=== PATIENT | male | born 1985 | race Caucasian/White ===

== ENCOUNTER 2019-05-13 13:10 | Emergency (ER) | payer OTHER, SELFPAY ==
[2019-05-13 13:42] VITALS: BP 127/88; PULSE 82; RESP 16; TEMP 36.5; O2SAT 99
--- NOTE | 2019-05-13 14:04 | ED.URI ---
HPI - URI/Sore Throat General Chief Complaint: Upper Respiratory Infection Stated Complaint: Chest pain/SOB Time Seen by Provider: 05/13/19 14:04 Source: patient and RN notes reviewed Mode of arrival: ambulatory Limitations: no limitations History of Present Illness HPI Narrative: 33 year old male presents with concern for shortness of breath. He reports symptoms started mildly one week ago with mild shortness of breath. Reports episodes of shortness of breath seemed to worsen yesterday. He denies current shortness of breath. He denies cough, rhinorrhea, nasal congestion. Reports fatigue. Denies taking any medications for his symptoms. MD elicited complaint: cough Related Data Home Medications Medication Instructions Recorded Confirmed insulin degludec [Tresiba U-100 36 unit SUBCUT HS 05/13/19 05/13/19 Insulin] insulin lispro [Humalog KwikPen See Protocol SUBCUT 05/13/19 Insulin] Allergies Allergy/AdvReac Type Severity Reaction Status Date / Time No Known Allergies Allergy Verified 05/13/19 13:20 Review of Systems Review of Systems: Narrative: CONSTITUTIONAL: Denies malaise, chills, sweats, or fever. Reports fatigue. EYES: Denies visual changes, redness, or discharge. ENT: Denies rhinorrhea, congestion, sinus pain, otalgia and sore throat. CARDIOVASCULAR: Denies chest pain, palpitations, or edema. RESPIRATORY: Reports cough, dyspnea. GASTROINTESTINAL: Denies abdominal pain, nausea, vomiting, diarrhea SKIN: Denies rash or itching. MUSCULOSKELETAL: Denies myalgia. NEUROLOGIC: Denies headache. All systems reviewed & are unremarkable except as noted in HPI and below PMFSH Family History Family History (Updated 10/26/14 @ 10:38 by DOCTOR UNKNOWN) Other Family history of Alzheimer's disease Family history of kidney disease Social History Social History Smoking status: Never smoker Alcohol intake: current Gender identity (if verbalized by the patient): Male Comments At time of signature, agree with nursing past medical, surgical, social and family history. There is no relevant family history pertinent to the presenting complaint Exam Narrative: Exam Narrative: GENERAL: Well-appearing, well-nourished, and in no acute distress. HEAD: Normocephalic EYES: PERRLA, conjunctivae clear ENT: Nares clear, turbinates pink, no discharge. Mucous membranes moist. TM pearly romero with sharp light reflex bilaterally; no tragal tenderness. Oropharynx not erythematous without lesions. Tonsils not enlarged and without exudate, no drooling, no hoarseness, no trismus, uvula midline. NECK: Supple. No lymphadenopathy CHEST: Clear to auscultation, breath sounds equal. No wheezing, rhonchi, rales, or stridor. No respiratory distress, speaks in full sentences. HEART: Regular rate and rhythm. No murmur heard. SKIN: Warm, dry, no rash. NEURO: Alert and oriented x3. PSYCH: Normal mood and affect Course Course Emergency Course: Patient is aware of diagnosis, understands and agrees to treatment plan. Anticipatory guidance given. Patient agrees to follow-up as directed and is aware of reasons to seek care at the emergency department. Portions of this record may have been created with voice recognition software Vital Signs Vital signs: Vital Signs Temperature 97.7 F 05/13/19 13:42 Pulse Rate 82 05/13/19 13:42 Respiratory Rate 16 05/13/19 13:42 Blood Pressure 127/88 05/13/19 13:42 Pulse Oximetry 99 05/13/19 13:42 Temperature 97.7 F 05/13/19 13:42 Pulse Rate 82 05/13/19 13:42 Respiratory Rate 16 05/13/19 13:42 Blood Pressure 127/88 05/13/19 13:42 Pulse Oximetry 99 05/13/19 13:42 Reviewed. Patient has been instructed to follow up with her primary care provider within the next week regarding her elevated blood pressure today. MDM - URI/Sore Throat MDM Narrative Medical decision making narrative: Differential diagnosis considered: Strep pharyngitis, allergic rhinitis, upper res
== END 2019-05-13 14:37 | disposition home or self-care (01) ==
PROVIDERS: Emergency Provider Nurse Practitioner
DX: B34.9 Viral infection, unspecified (principal); E10.9 Type 1 diabetes mellitus without complications
CPT/HCPCS: 99211; G0463

== ENCOUNTER 2019-06-06 10:27 | Emergency (ER) | payer OTHER, SELFPAY ==
[2019-06-06] VITALS (14 sets, daily range): BP systolic 119–129; BP diastolic 36–92; PULSE 93–115; RESP 13–24; TEMP 36.8; O2SAT 96–100
--- NOTE | ~2019-06-06 | XR_ITS ---
XR chest 1V portable 06/06/2019 11:16 Indication: Shortness of breath Procedure: AP portable chest Comparison: No prior studies for comparison. Findings: Heart size normal. No focal air space disease, pulmonary edema, pleural effusion or suspect ed pneumothorax. Impression: 1: No acute cardiopulmonary disease. Reviewed, dictated and finalized at location A. Impression: 1: No acute cardiopulmonary disease.
--- NOTE | 2019-06-06 10:49 | ECG_ITS ---
Measurements Intervals [place] Rate: 106 P: 69 SC: 121 QRS: -24 QRSD: 97 T: 63 QT: 318 QTc: 424 Interpretive Statements SINUS TACHYCARDIA ABNORMAL ECG Electronically Signed On 06-06-2019 11:11:44 CDT by Lisandro Rosario D.O.
[2019-06-06 11:01] LABS: Basophils Percent Auto 0.7 % (0.2-1.2); Eosinophils Percent Auto 0.7 % (0-4.4); Hematocrit 48.4 % (42.0-52.0); Hemoglobin 16.4 g/dL (14.0-18.0); Immature Granulocyte Absolute 0.01 K/mm3 (0.00-0.031); Immature Granulocyte Percent A 0.2 % (0-0.5); Lymphocytes Absolute Auto 1.08 K/mm3 (0.9-3.2); Lymphocytes Percent Auto 24.4 % (18.3-44.2); Mean Corpuscular HGB Conc 33.9 g/dl (32-36); Mean Corpuscular Hemoglobin 28.9 pg (26-34); Mean Corpuscular Volume 85.2 fl (80-100); Monocytes Absolute Auto 0.3 K/mm3 (0.1-0.6); Monocytes Percent Auto 6.1 % (2.6-8.5); Neutrophils Percent Auto 67.9 % (45.5-73.1); Platelet Count Result 271 k/mm3 (150-375); Red Blood Count 5.68 M/mm3 (4.6-6.20); Red Cell Distribution Width 12.8 % (11.5-14.5); White Blood Count 4.4 K/mm3 (4.5-10.0)
[2019-06-06 11:13] LABS: Blood Urea Nitrogen 15 mg/dL (9-20); Calcium 9.3 mg/dL (8.4-10.2); Carbon Dioxide 30 mmol/L (22-30); Chloride 103 mmol/L (98-107); Estimated CRCL calculation 121 ml/min; Estimated Glomerular Filt Rate > 60; Glucose 117 mg/dL (75-110); Potassium 3.6 mmol/L (3.4-5.0); Sodium 139 mmol/L (137-145)
--- NOTE | 2019-06-06 11:58 | ED.GENADULT ---
HPI - General Adult General Chief complaint: Shortness of Breath/Dyspnea Stated complaint: Sob Time Seen by Provider: 06/06/19 11:13 Source: patient and family Mode of arrival: ambulatory Limitations: no limitations History of Present Illness HPI narrative: Patient is a 33-year-old male who presents to emergency department for evaluation of shortness of breath that is been present now for almost 30 days. Patient has been seen at 2 urgent cares with unremarkable results. Patient notes he had had some congestion during this. And slight cough that is nonproductive. Patient notes intermittent shortness of breath denies chest pain notes he has had some loose stools but denies vomiting. Patient is a diabetic notes that his sugars are well controlled. On arrival patient in no distress resting comfortably in the room Related Data Home Medications Medication Instructions Recorded Confirmed insulin degludec [Tresiba U-100 36 unit SUBCUT HS 05/13/19 05/13/19 Insulin] insulin lispro [Humalog KwikPen See Protocol SUBCUT 05/13/19 Insulin] Allergies Allergy/AdvReac Type Severity Reaction Status Date / Time No Known Allergies Allergy Verified 05/13/19 13:20 [facility] Past Medical History Medical History (Updated 06/06/19 @ 12:27 by Randy Tavera PA-C) Diabetes mellitus Family History Family History (Updated 10/26/14 @ 10:38 by DOCTOR UNKNOWN) Other Family history of Alzheimer's disease Family history of kidney disease Social History Social History Smoking status: Never smoker Alcohol intake: current Gender identity (if verbalized by the patient): Male Exam Narrative: Exam Narrative: GENERAL: Well-appearing, well-nourished, and in no acute distress. HEAD: Normocephalic, atraumatic. EYES: PERRLA and EOMI. ENT: Nares clear, no rhinorrhea or epistaxis. Mucous membranes moist. Oropharynx without tonsillar hypertrophy exudate or other lesions. NECK: Supple. No adenopathy or masses. CHEST: Clear to auscultation. No respiratory distress. No wheezes rales or rhonchi HEART: Regular rate and rhythm. No murmur heard. Normal peripheral pulses. ABDOMEN: Soft, nontender, nondistended EXTREMITIES: Normal range of motion. No edema. SKIN: Warm, dry, no rash. NEURO: No focal deficits. Alert and oriented x3. Cranial nerves II through XII grossly intact PSYCH: Normal mood and affect. Course Vital Signs Vital signs: Vital Signs Temperature 98.2 F 06/06/19 10:37 Pulse Rate 109 H 06/06/19 10:37 Respiratory Rate 13 06/06/19 10:37 Blood Pressure 122/91 H 06/06/19 10:37 Pulse Oximetry 100 06/06/19 10:37 Temperature 98.2 F 06/06/19 10:37 Pulse Rate 105 H 06/06/19 11:45 Respiratory Rate 13 06/06/19 11:45 Blood Pressure 129/82 06/06/19 11:31 Pulse Oximetry 96 06/06/19 11:45 Medical Decision Making MDM Narrative Medical decision making narrative: Patient in the room in no distress with dyspnea of unknown etiology patient advised to follow with primary care no pneumonia seen on exam no high risk changes in the blood work or imaging negative d-dimer. Pulmonary embolus is felt unlikely patient provided with reasons to return Patient given primary care referral Vital Signs Vital Signs: Vital Signs Temperature 98.2 F 06/06/19 10:37 Pulse Rate 109 H 06/06/19 10:37 Respiratory Rate 06/06/19 10:37 Blood Pressure 122/91 H 06/06/19 10:37 Pulse Oximetry 100 06/06/19 10:37 Temperature 98.2 F 06/06/19 10:37 Pulse Rate 105 H 06/06/19 11:45 Respiratory Rate 06/06/19 11:45 Blood Pressure 129/82 06/06/19 11:31 Pulse Oximetry 96 06/06/19 11:45 Lab Data Result diagrams: 06/06/19 10:51 06/06/19 10:51 Labs: Lab Results 06/06/19 06/06/19 Range/Units 10:51 10:51 WBC 4.4 L (4.5-10.0) K/mm3 RBC 5.68 (4.6-6.20) M/mm3 Hgb 16.4 (14.0-18.0) g/dL
[2019-06-06 12:22] LABS: D Dimer 0.27 ug/mL (<0.48)
== END 2019-06-06 12:54 | disposition home or self-care (01) ==
PROVIDERS: Emergency Medicine Emergency Medical Services; Emergency Provider Emergency Medicine
DX: R06.00 Dyspnea, unspecified (principal); E11.9 Type 2 diabetes mellitus without complications; Z79.4 Long term (current) use of insulin; R00.0 Tachycardia, unspecified
CPT/HCPCS: 36415; 71045; 80048; 85025; 85380; 93005; 99284

== ENCOUNTER 2019-06-24 08:43 | Outpatient (CLI) | payer OTHER, SELFPAY ==
--- NOTE | 2019-06-24 | EST_ITS ---
Patient Info Name: Shai Bonilla Age: 33 years : 1985 Gender: Male Ht: 74 in Wt: 187 lbs BSA: 2.11 m2 Exam Date: 06/24/2019 10:22 AM Exam Location: [facility] Stress Patient Status: Outpatient Admit Date: 06/24/2019 Staff Ordering Physician: Skip Vanessa MD Attending Provider: Skip Vanessa MD Exercise Technologist: Shanon Snow RDCS Exercise Physician: Lisandro Rosario DO Exam Type: CA stress test treadmill Study Info Indications R06.00 - Dyspnea, unspecified A treadmill exercise stress test was performed. Summary 1. 1. Negative Anup exercise stress test for ischemic ST changes by ECG criteria. 2. 2. Mildly reduced functional capacity, achieving 12 METs of workload. 3. 3. Appropriate HR response to exercise. 4. 4. Appropriate HR recovery at 1 minute post exercise. 5. 5. No imaging with stress testing. 6. 6. Patient informed of the above results. Protocol: Anup Stress ECG Details Stage: REST Duration (min): 6 min : 49 sec Speed (mph): 0.0 Grade (%): 0 HR (bpm): 80 SBP (mmHg): 119 DBP (mmHg): 71 METS: --- Stage: REST Duration (min): 10 min : 8 sec Speed (mph): 0.0 Grade (%): 0 HR (bpm): 109 SBP (mmHg): 119 DBP (mmHg): 71 METS: --- Stage: STAGE 1 Duration (min): 1 min : 0 sec Speed (mph): 1.7 Grade (%): 10 HR (bpm): 117 SBP (mmHg): 119 DBP (mmHg): 71 METS: --- Stage: STAGE 1 Duration (min): 2 min : 0 sec Speed (mph): 1.7 Grade (%): 10 HR (bpm): 114 SBP (mmHg): 119 DBP (mmHg): 71 METS: --- Stage: STAGE 1 Duration (min): 3 min : 0 sec Speed (mph): 1.7 Grade (%): 10 HR (bpm): 121 SBP (mmHg): 151 DBP (mmHg): 69 METS: --- Stage: STAGE 2 Duration (min): 1 min : 0 sec Speed (mph): 2.5 Grade (%): 12 HR (bpm): 133 SBP (mmHg): 151 DBP (mmHg): 69 METS: --- Stage: STAGE 2 Duration (min): 2 min : 0 sec Speed (mph): 2.5 Grade (%): 12 HR (bpm): 145 SBP (mmHg): 159 DBP (mmHg): 70 METS: --- Stage: STAGE 2 Duration (min): 3 min : 0 sec Speed (mph): 2.5 Grade (%): 12 HR (bpm): 148 SBP (mmHg): 159 DBP (mmHg): 70 METS: --- Stage: STAGE 3 Duration (min): 1 min : 0 sec Speed (mph): 3.4 Grade (%): 14 HR (bpm): 165 SBP (mmHg): 175 DBP (mmHg): 70 METS: --- Stage: STAGE 3 Duration (min): 2 min : 0 sec Speed (mph): 3.4 Grade (%): 14 HR (bpm): 169 SBP (mmHg): 175 DBP (mmHg): 70 METS: --- Stage: STAGE 3 Duration (min): 3 min : 0 sec Speed (mph): 3.4 Grade (%): 14 HR (bpm): 173 SBP (mmHg): 172 DBP (mmHg): 78 METS: --- Stage: STAGE 4 Duration (min): 1 min : 0 sec Speed (mph): 4.2 Grade (%): 16 HR (bpm): 180 SBP (mmHg): 172 DBP (mmHg): 78 METS: --- Stage: STAGE 4 Duration (min): 1 min : 0 sec
--- NOTE | 2019-06-28 13:17 | WPDPFTINT ---
PFT Interpretation PFT Interpretation: DOS: 06/24/2019 REQUESTING: Dr Vanessa REASON FOR TESTING: Dyspnea PULMONARY FUNCTION TESTS Results are reliable and reproducible. Spirometry: FEV1 86%, 3.92 L. Normal. FVC 79%, mildly decreased. FEV1% is 84%, normal. No change with bronchodilator. Lung volumes: TLC 66%, moderately decreased. No air trapping. Airway resistance increased at 187%. Diffusion: DLCO normal 83%. Flow volume loop: Neither restrictive nor obstructive pattern, nonspecific shape IMPRESSION: Moderate restrictive defect with normal diffusion and spirometry. mild increased in airway resistance. Among patients with a restrictive defect, normal DLCO suggests an extrapulmonary cause of restriction such as neuromuscular weakness, kyphoscoliosis, pleural effusion or pleural thickening. Consider obtaining maximal inspiratory and expiratory pressures to evaluate respiratory muscle strength. Jaye Spain MD
== END 2019-06-24 08:44 | disposition home or self-care (01) ==
PROVIDERS: PCP Family Medicine; Visit Provider Family Medicine
DX: R06.00 Dyspnea, unspecified (principal)
CPT/HCPCS: 93017; 94060; 94726; 94729

== ENCOUNTER 2020-12-11 14:07 | Outpatient (CLI) | payer OTHER, SELFPAY ==
--- NOTE | 2020-12-12 07:22 | WPDPFTINT ---
PFT Procedure Performed PFT Procedure Performed Spirometry with Pre/Post Bronchodilator Plethysmography (Lung Vol) Diffusing Cap (DLCO) Flow Vol Loop PFT Interpretation This is a pulmonary function test with pre and post-bronchodilator spirometry, plethysmography and diffusing capacity. The test was performed and results interpreted in accordance with the 2019 and 2005 ATS/ERS Task Force guidelines respectively using the Global Lung Function Initiative-2012 reference equations. Patient demonstrated good effort and cooperation. Reproducibility criteria were met. The quality of the pre bronchodilator spirometry maneuver was Grade A and post bronchodilator spirometry maneuver was Grade A. Findings: Spirometry: Contour the inspiratory and expiratory flow tracing are normal. The pre bronchodilator FVC is 4.52 L, 73% predicted. The pre bronchodilator FEV1 is 3.95 L, 79% predicted. the FEV1: FVC ratio was 87%. The post bronchodilator FEV1 is 4.42 L, representing a 2% decrease. The post bronchodilator FEV1 is 3.92 L, representing 1% decrease. Plethysmography: The total lung capacity is 6.05 L, 78% predicted. Functional residual capacity is 3.01 L, 78% predicted. The residual volume is 1.32 L, 69% predicted. Diffusing capacity: The absolute diffusion capacity is 28.3, 78% predicted. The diffusing capacity corrected for alveolar volume is 5.53, 101 14% predicted. In comparison to previous pulmonary function test on 06/24/2019 the post bronchodilator FVC is unchanged from 4.53 L to 4.42 L. The post bronchodilator FEV1 is unchanged from 3.94 L to 3.92 L. the total lung capacity is increased from 5.35 L to 6.05 L. The functional residual capacity is increased from 2.32 L to 3.01 L. The residual volume is increased from 0.69 L to 1.32 L. The absolute diffusing capacity is unchanged from 20.6 to 28.3. The diffusing capacity corrected for alveolar volume is unchanged from 5.06 to 5.53. Impression: There is a mild restrictive ventilatory abnormality. The spirometry is normal without evidence of an obstructive abnormality. There is no significant improvement after inhaling a single dose of albuterol. The diffusing capacity is normal. When compared to the prior pulmonary function test there has been a greater than anticipated time dependent increase in the total lung capacity, functional residual capacity and the residual volume with no significant change in the FVC, FEV1, absolute diffusing capacity or diffusing capacity corrected for alveolar volume. Clinical correlation is recommended.
== END 2020-12-11 14:08 | disposition home or self-care (01) ==
PROVIDERS: PCP Family Medicine; Visit Provider Internal Medicine Pulmonary Disease
DX: R06.00 Dyspnea, unspecified (principal)
CPT/HCPCS: 94060; 94726; 94729

== ENCOUNTER 2020-12-23 09:27 | Emergency (ER) | payer OTHER, SELFPAY ==
--- NOTE | ~2020-12-23 | XR_ITS ---
EXAMINATION: XR chest 2V EXAM DATE: 12/23/2020 09:57 INDICATION: palpitations. H/O diabetes. TECHNIQUE: Frontal and lateral projections of the chest obtained and reviewed. Comparison is made to prior examination from 06/06/2019. FINDINGS: The lungs are clear. There are no pleural effusions. The cardiomediastinal silhouette is within normal limits. There is no pneumothorax suspected. The bones and soft tissues are unremarkab le. IMPRESSION: No acute cardiopulmonary findings. Reviewed, dictated and finalized at location A.
--- NOTE | 2020-12-23 09:43 | ECG_ITS ---
Measurements Intervals [place] Rate: 78 P: 60 [place]: 128 QRS: -14 QRSD: 107 T: 59 QT: 361 QTc: 412 Interpretive Statements SINUS RHYTHM WITH SINUS ARRHYTHMIA BASELINE ARTIFACT- II, III, AVL, AVF NORMAL ECG Electronically Signed On 12-23-2020 14:59:45 CDT by Lisandro Rosario D.O.
[2020-12-23 09:46] VITALS: BP 146/89; PULSE 90; RESP 26; TEMP 36.8; O2SAT 100
[2020-12-23 10:14] LABS: Basophils Percent Auto 0.4 % (0.2-1.2); Eosinophils Percent Auto 0.9 % (0-4.4); Hemoglobin 14.7 g/dL (14.0-18.0); Immature Granulocyte Absolute 0.01 K/mm3 (0.00-0.031); Immature Granulocyte Percent A 0.2 % (0-0.5); Lymphocytes Absolute Auto 1.54 K/mm3 (0.9-3.2); Mean Corpuscular HGB Conc 34.2 g/dl (32-36); Mean Corpuscular Hemoglobin 29.6 pg (26-34); Mean Corpuscular Volume 86.7 fl (80-100); Mean Platelet Volume 9.2 fl (7.4-10.4); Monocytes Absolute Auto 0.4 K/mm3 (0.1-0.6); Monocytes Percent Auto 7.5 % (2.6-8.5); Neutrophils Absolute Auto 2.7 K/mm3 (1.3-6.7); Platelet Count Result 240 k/mm3 (150-375); Red Blood Count 4.96 M/mm3 (4.6-6.20); Red Cell Distribution Width 12.3 % (11.5-14.5); White Blood Count 4.7 K/mm3 (4.5-10.0)
[2020-12-23 10:16] LABS: Add Urine Microscopic? NO; Appearance Urine Clear (Clear); Bilirubin Urine Negative (Negative); Blood Urine Negative (Negative); Color Urine Yellow (Yellow); Glucose Urine UA Negative (Negative); Ketones Urine Negative (Negative); Leukocyte Esterase Ur Negative LEU/UL (Negative); Nitrate Urine Negative (Negative); Protein Urine Negative (Negative); Specific Grav Ur 1.016 (1.001-1.035); Urobilinogen Urine Negative mg/dL (<2.0)
[2020-12-23 10:27] LABS: Alanine Aminotransferase 33 U/L (4-50); Albumin Level 4.3 g/dL (3.5-5.1); Alkaline Phosphatase 63 U/L (38-126); Anion Gap 9 mmol/L (8-16); Aspartate Amino Transferase 28 U/L (17-59); Bilirubin,Total 0.4 mg/dL (0.2-1.3); Blood Urea Nitrogen 13 mg/dL (9-20); Calcium 9.4 mg/dL (8.4-10.2); Carbon Dioxide 26 mmol/L (22-30); Chloride 106 mmol/L (98-107); Estimated CRCL calculation 119 ml/min; Estimated Glomerular Filt Rate > 60; Glucose 153 mg/dL (65-110); Potassium 3.8 mmol/L (3.4-5.0); Sodium 141 mmol/L (137-145)
[2020-12-23 10:31] VITALS: BP 131/78; PULSE 86; RESP 17; O2SAT 99
--- NOTE | 2020-12-23 10:36 | ED.ARRPALP ---
HPI - Arrhythmia/Palpitations General Chief Complaint: Arrhythmia/Palpitations Stated Complaint: irregular heart beat Time Seen by Provider: 12/23/20 09:31 Source: patient History of Present Illness HPI narrative: Patient presents with palpitations. Patient was is getting ready for latter day was going up and down the stairs and had a sensation of his heart pounding. He put on an apple watch and it said he was in A. fib with a fast heart rate he was concerned so he came to the ER for evaluation. By time he came to the ER reports his symptoms had greatly improved. His initial symptoms were associated with chest tightness shortness of breath he now feels well. Denies any focal chest pain denies any shortness of breath. Mild cough and congestion but denies any fevers, nausea, vomiting. Denies significant family history of cardiac arrhythmias or disease. Reports he is being evaluated by pulmonology for his shortness of breath. Patient denies recent hospitalizations trauma or surgeries denies prior history of PE or family hx of clotting disorders Related Data Home Medications Medication Instructions Recorded Confirmed insulin lispro [Humalog KwikPen See Protocol SUBCUT 05/13/19 12/20/20 Insulin] sildenafil 25 mg tablet 50 mg PO DAILY PRN tablet 07/25/19 12/20/20 cetirizine 10 mg capsule 10 mg PO DAILY 08/01/19 12/20/20 fluticasone propionate 50 2 spray NASAL DAILY ml 09/14/19 12/20/20 mcg/actuation nasal spray,suspension Allergies Allergy/AdvReac Type Severity Reaction Status Date / Time acetaminophen Allergy Unknown fever Verified 12/23/20 09:58 Review of Systems Review of Systems: CONSTITUTIONAL: Denies fever, chills, or sweats. EYES: Denies visual changes, redness, or discharge. ENT: Denies rhinorrhea, congestion, sore throat, or otalgia. CARDIOVASCULAR: Reported chest pain and palpitations RESPIRATORY: Denies cough GASTROINTESTINAL: Denies abdominal pain, nausea, vomiting, or diarrhea. GENITOURINARY: Denies dysuria or hematuria. SKIN: Denies rash or itching. MUSCULOSKELETAL: Denies back pain, joint pain, or myalgia. NEUROLOGIC: Denies headache, numbness, dizziness, or weakness. PSYCHIATRIC: Denies anxiety or depression. All systems reviewed & are unremarkable except as noted in HPI and below PMFSH Past Medical History Medical History Abnormal weight loss Diabetes mellitus Dyspnea Loss of appetite SOB (shortness of breath) Family History Family History Other Family history of Alzheimer's disease Family history of kidney disease Social History Social History Smoking status: Never smoker Second hand tobacco smoke exposure: Yes (27 years ) Alcohol intake: current Gender identity (if verbalized by the patient): Male Exam Narrative: GENERAL: Well-appearing, well-nourished, and in no acute distress. HEAD: Normocephalic, atraumatic. EYES: PERRLA and EOMI. ENT: Nares clear, no rhinorrhea or epistaxis. Mucous membranes moist. NECK: Supple. No masses. No JVD CHEST: Clear to auscultation. No respiratory distress. No wheezes rales or rhonchi HEART: Regular rate and rhythm. No murmur heard. Normal peripheral pulses. ABDOMEN: Soft, nontender, nondistended, normal active bowel sounds. EXTREMITIES: Normal range of motion. No edema. SKIN: Warm, dry, no rash. NEURO: No focal deficits. Alert and oriented x3. PSYCH: Normal mood and affect. Course Reevaluation(s) Reevaluation #1: Patient is resting comfortably reports feeling much improved results and plan reviewed with patient. Patient comfortable with outpatient plan. Date: 12/23/20 Time: 10:46 Vital Signs Vital signs: Vital Signs Temperature 36.8 C 12/23/20 09:46 Pulse Rate 90 12/23/20 09:46 Respiratory Rate 26 H 12/23/20 09:46 Blood Pressure 146/89 H 12/23/20 09:46 P
[2020-12-23 10:38] LABS: Troponin I < 0.012 ng/mL (0.000-0.034)
[2020-12-23 10:55] VITALS: BP 142/71; PULSE 80; RESP 18; O2SAT 99
== END 2020-12-23 10:56 | disposition home or self-care (01) ==
LOC: ANHED 10:56
PROVIDERS: Emergency Provider Emergency Medicine; PCP Family Medicine
DX: R00.2 Palpitations (principal); E11.9 Type 2 diabetes mellitus without complications; Z79.4 Long term (current) use of insulin
CPT/HCPCS: 36415; 71046; 80053; 81003; 84484; 85025; 93005; 99284

== ENCOUNTER 2021-01-15 08:40 | Emergency (ER) | payer OTHER, SELFPAY ==
[2021-01-15] VITALS (9 sets, daily range): BP systolic 120–151; BP diastolic 75–76; PULSE 63–94; RESP 12–18; TEMP 36.6; O2SAT 95–99
--- NOTE | ~2021-01-15 | XR_ITS ---
EXAMINATION: XR chest 2V DATE: 01/15/2021 08:58 INDICATION: Chest pain. TECHNIQUE: Frontal and lateral views of the chest were obtained. COMPARISON: Chest 2 views 12/23/2020 FINDINGS: There is mild scarring at the lung apices. No pleural effusion or pneumothorax. The heart s ize is normal. IMPRESSION: 1. Stable mild scarring at the lung apices. Reviewed, dictated and finalized at location B. [employer] [employer]
--- NOTE | 2021-01-15 08:42 | ECG_ITS ---
Measurements Intervals [place] Rate: 89 P: 71 [place]: 131 QRS: -26 QRSD: 97 T: 63 QT: 353 QTc: 430 Interpretive Statements SINUS RHYTHM DELAYED PRECORDIAL R/S TRANSITION BASELINE ARTIFACT- V1-V3 BORDERLINE ECG Electronically Signed On 01-15-2021 8:58:27 [employer] by Lisandro Rosario D.O.
--- NOTE | 2021-01-15 08:53 | ED.CHESTPAIN ---
HPI - Chest Pain General Chief Complaint: Chest Pain Stated Complaint: chest discomfort, 3 apple watch afib readings Time Seen by Provider: 01/15/21 08:49 Source: patient Mode of arrival: ambulatory Limitations: no limitations History of Present Illness HPI narrative: Patient is a 35-year-old male complaining of palpitations, my watch told me I was in A. fib started this morning. Patient states that he has been having on and off palpitation for the past 5 days. Patient states that he recently started citalopram 5 days ago. Patient denies any chest pain, shortness of breath, abdominal pain, nausea, vomiting, fever or chills. Related Data Home Medications Medication Instructions Recorded Confirmed insulin lispro [Humalog KwikPen See Protocol SUBCUT 05/13/19 12/20/20 Insulin] sildenafil 25 mg tablet 50 mg PO DAILY PRN tablet 07/25/19 12/20/20 cetirizine 10 mg capsule 10 mg PO DAILY 08/01/19 12/20/20 fluticasone propionate 50 2 spray NASAL DAILY ml 09/14/19 12/20/20 mcg/actuation nasal spray,suspension Allergies Allergy/AdvReac Type Severity Reaction Status Date / Time acetaminophen Allergy Unknown fever Verified 12/23/20 09:58 Review of Systems Review of Systems: All systems reviewed & are unremarkable except as noted in HPI and below Constitutional: Constitutional: Denies body ache(s), Denies chills, Denies excessive sweating, Denies fatigue, Denies fever(s), Denies headache(s), Denies lethargy, Denies malaise, Denies weakness and Denies weight loss Eyes: Eyes: Denies blurry vision, Denies change in vision and Denies loss of vision ENT: Denies dizziness, Denies ear discharge, Denies headache(s), Denies lip swelling, Denies epistaxis, Denies nasal congestion, Denies neck pain, Denies throat swelling and Denies tongue swelling Cardiovascular: Cardiovascular: Denies chest pain, Denies chest pain at rest, Denies chest pain with activity, Denies diaphoresis, Denies rapid heart rate, Denies edema, Denies irregular heart rhythm, Denies lightheadedness, Denies dyspnea and Denies dyspnea on exertion Respiratory: Respiratory: Denies chest congestion, Denies cough, Denies hemoptysis, Denies dyspnea and Denies dyspnea on exertion Gastrointestinal: Gastrointestinal: Denies abdominal pain, Denies melena, Denies hematochezia, Denies diarrhea, Denies nausea, Denies vomiting and Denies hematemesis Musculoskeletal: Musculoskeletal: Denies abnormal gait, Denies deformity, Denies joint swelling, Denies limited range of motion, Denies neck pain and Denies numbness Neurologic: Denies Abnormal speech present, Denies abnormal gait, Denies confusion, Denies dizziness, Denies headache(s), Denies focal weakness, Denies loss of vision, Denies numbness, Denies Other visual disturbances, Denies Sensory deficit (Neuro) and Denies weakness Psychiatric: Psychiatric: Denies confusion, Denies depression, Denies auditory hallucinations, Denies homicidal ideation and Denies suicidal ideation Endocrine: Endocrine: Denies cold intolerance, Denies excessive sweating, Denies fatigue, Denies heat intolerance and Denies palpitations Hematologic/Lymphatic: Hematologic/Lymphatic: Denies easy bleeding and Denies easy bruising Allergic/Immunologic: Allergic/Immunologic: Denies lip swelling, Denies throat swelling and Denies tongue swelling PMFSH Past Medical History Medical History Abnormal weight loss Diabetes mellitus Dyspnea Loss of appetite SOB (shortness of breath) Family History Family History Other Family history of Alzheimer's disease Family history of kidney disease Social History Social History Smoking status: Never smoker Second hand tobacco smoke exposure: Yes (27 years ) Alcohol intake: current Gender identity (if verbalized by the patient): Male Exam Con
[2021-01-15 08:58] LABS: Basophils Percent Auto 0.6 % (0.2-1.2); Eosinophils Absolute Auto 0.1 K/mm3 (0-0.3); Eosinophils Percent Auto 1.1 % (0-4.4); Hematocrit 44.9 % (42.0-52.0); Hemoglobin 15.7 g/dL (14.0-18.0); Immature Granulocyte Absolute 0.01 K/mm3 (0.00-0.031); Immature Granulocyte Percent A 0.2 % (0-0.5); Lymphocytes Absolute Auto 1.48 K/mm3 (0.9-3.2); Lymphocytes Percent Auto 31.7 % (18.3-44.2); Mean Corpuscular Volume 85.9 fl (80-100); Mean Platelet Volume 9.4 fl (7.4-10.4); Monocytes Absolute Auto 0.4 K/mm3 (0.1-0.6); Monocytes Percent Auto 7.7 % (2.6-8.5); Neutrophils Absolute Auto 2.7 K/mm3 (1.3-6.7); Neutrophils Percent Auto 58.7 % (45.5-73.1); Platelet Count Result 258 k/mm3 (150-375); Red Blood Count 5.23 M/mm3 (4.6-6.20); Red Cell Distribution Width 12.4 % (11.5-14.5); White Blood Count 4.7 K/mm3 (4.5-10.0)
[2021-01-15 09:15] LABS: Alanine Aminotransferase 23 U/L (4-50); Albumin Level 4.6 g/dL (3.5-5.1); Alkaline Phosphatase 71 U/L (38-126); Anion Gap 9 mmol/L (8-16); Aspartate Amino Transferase 24 U/L (17-59); Bilirubin,Total 1.2 mg/dL (0.2-1.3); Blood Urea Nitrogen 20 mg/dL (9-20); Calcium 9.3 mg/dL (8.4-10.2); Carbon Dioxide 27 mmol/L (22-30); Chloride 100 mmol/L (98-107); Estimated CRCL calculation 108 ml/min; Estimated Glomerular Filt Rate > 60; Glucose 139 mg/dL (65-110); Lipase 47 U/L (23-300); Potassium 3.7 mmol/L (3.4-5.0); Sodium 136 mmol/L (137-145)
[2021-01-15 09:21] LABS: INR 1.1; Prothrombin Time 13.6 Seconds (11.1-14.7)
[2021-01-15 09:22] LABS: Partial Thromboplastin Time 27.2 SECONDS (22.3-36.8)
[2021-01-15 09:24] LABS: D Dimer 0.37 ug/mL (<0.48)
[2021-01-15 09:27] LABS: Troponin I < 0.012 ng/mL (0.000-0.034)
--- NOTE | 2021-01-15 09:32 | PC.NURSE ---
Per EDP [place], no dose of aspirin needed. Patient denies chest pain.
== END 2021-01-15 10:09 | disposition home or self-care (01) ==
PROVIDERS: Emergency Provider Emergency Medicine; PCP Family Medicine
DX: R00.2 Palpitations (principal); E11.9 Type 2 diabetes mellitus without complications; Z79.4 Long term (current) use of insulin
CPT/HCPCS: 36415; 71046; 80053; 83690; 84443; 84484; 85025; 85380; 85610; 85730; 93005; 99284

== ENCOUNTER 2021-10-07 14:15 | Outpatient (CLI) | payer OTHER, SELFPAY | END 2021-10-07 14:16 | disposition home or self-care (01) | LOC: ANHAUDIO 14:16 | PROVIDERS: PCP Family Medicine; Visit Provider Family Medicine | DX: H91.93 Unspecified hearing loss, bilateral (principal) | CPT/HCPCS: 99199 ==

== ENCOUNTER 2021-10-22 14:24 | Outpatient (CLI) | payer OTHER, SELFPAY | END 2021-10-22 14:25 | disposition home or self-care (01) | LOC: ANHAUDIO 14:25 | PROVIDERS: PCP Family Medicine; Referring Provider Family Medicine; Visit Provider Family Medicine | DX: H90.41 Sensorineural hearing loss, unilateral, right ear, with unrestricted hearing on the contralateral side (principal) | CPT/HCPCS: 92557; 92567 ==

== ENCOUNTER 2022-01-29 16:00 | Outpatient (CLI) | payer OTHER, SELFPAY ==
[2022-01-29 16:36] LABS: Immunoglobulin G 957 mg/dL (700-1600); Immunoglobulin M 70 mg/dL (40-230)
[2022-01-29 16:53] LABS: SARS-CoV-2 RNA PCR Negative
== END 2022-01-29 16:01 | disposition home or self-care (01) ==
LOC: ANHLAB 16:03
PROVIDERS: PCP Family Medicine; Visit Provider Family Medicine
DX: M79.10 Myalgia, unspecified site (principal); R50.81 Fever presenting with conditions classified elsewhere; Z20.822 Contact with and (suspected) exposure to COVID-19
CPT/HCPCS: 36415; 82784; U0003; U0005

== ENCOUNTER 2022-06-11 20:55 | Emergency (ER) | payer OTHER, SELFPAY ==
[2022-06-11 20:57] VITALS: BP 110/77; PULSE 95; RESP 15; TEMP 36.8; O2SAT 99
[2022-06-11 21:18] LABS: Basophils Percent Auto 0.4 % (0.2-1.2); Eosinophils Percent Auto 0.1 % (0-4.4); Hematocrit 46.6 % (42.0-52.0); Hemoglobin 15.9 g/dL (14.0-18.0); Immature Granulocyte Absolute 0.02 K/mm3 (0.00-0.031); Immature Granulocyte Percent A 0.3 % (0-0.5); Lymphocytes Absolute Auto 0.47 K/mm3 (0.9-3.2); Lymphocytes Percent Auto 6.2 % (18.3-44.2); Mean Corpuscular HGB Conc 34.1 g/dl (32-36); Mean Corpuscular Hemoglobin 29.3 pg (26-34); Mean Platelet Volume 9.5 fl (7.4-10.4); Monocytes Absolute Auto 0.4 K/mm3 (0.1-0.6); Monocytes Percent Auto 5.7 % (2.6-8.5); Neutrophils Absolute Auto 6.6 K/mm3 (1.3-6.7); Neutrophils Percent Auto 87.3 % (45.5-73.1); Platelet Count Result 222 k/mm3 (150-375); Red Blood Count 5.42 M/mm3 (4.6-6.20); Red Cell Distribution Width 12.6 % (11.5-14.5); White Blood Count 7.6 K/mm3 (4.5-10.0)
[2022-06-11 21:54] LABS: Influenza A QL RT-PCR Negative (Negative); Influenza B QL RT-PCR Negative (Negative); SARS-CoV-2 RNA PCR Negative (Negative)
--- NOTE | 2022-06-11 23:30 | ED.NAVMDI ---
HPI - Nausea/Vomiting/Diarrhea General Chief complaint: Nausea/Vomiting/Diarrhea <NINFA Hart Last Filed: 06/12/22 02:59> Stated complaint: sent by PCP to get swabbed for the flu <Luci Rocha PA-C - Last Filed: 06/12/22 02:59> Time Seen by Provider: 06/11/22 23:22 <Luci Rocha PA-C - Last Filed: 06/12/22 02:59> History of Present Illness HPI Narrative: 36-year-old male with a history of type 1 diabetes here for evaluation nausea, vomiting and diarrhea for the past 12 hours. Patient states he has been unable to keep down any p.o. and has had several episodes of vomiting nonbloody/nonbilious emesis throughout the day. He reports numerous episodes of nonbloody diarrhea as well. He states that he had a hot dog at the [employer] game prior to his symptom onset. He has had fevers at home. He states he cannot take Tylenol because it gave him a fever. He denies any sick contacts, abdominal pain. <NINFA Hart Last Filed: 06/12/22 02:59> Related Data Home medications: Home Medications Medication Instructions Recorded Confirmed sildenafil 25 mg tablet 50 mg PO DAILY PRN 07/25/19 10/21/21 citalopram 10 mg tablet 10 mg PO DAILY 03/07/21 10/21/21 cetirizine 10 mg capsule (Zyrtec) 10 mg PO DAILY PRN 10/21/21 10/21/21 fluticasone propionate 50 2 spray intranasal DAILY PRN 10/21/21 10/21/21 mcg/actuation nasal spray,suspension (Flonase Allergy Relief) <NINFA Hart Last Filed: 06/12/22 02:59> Allergies/Adverse reactions: Allergies Allergy/AdvReac Type Severity Reaction Status Date / Time acetaminophen Allergy Unknown fever Verified 10/21/21 08:58 budesonide [From Symbicort] AdvReac Mild Palpitation Verified 10/21/21 08:58 s formoterol [From Symbicort] AdvReac Mild Palpitation Verified 10/21/21 08:58 s <Luci Rocha PA-C - Last Filed: 06/12/22 02:59> Review of Systems Review of Systems: Gen: Denies fevers or chills Eyes: Denies eye pain or visual change ENT: Denies congestion Respiratory: Denies shortness of breath or cough CV: Denies chest pain or palpitations GI: reports nausea, vomiting and diarrhea : denies burning, urgency, frequency or hematuria Musculoskeletal: Denies back pain or muscle pain Neuro: Denies numbness, tingling, weakness or focal weakness Skin: Denies rash Except as documented, all other systems reviewed and negative <Luci Rocha PA-C - Last Filed: 06/12/22 02:59> [facility] Past Medical History Medical History: Medical History Abnormal weight loss Diabetes mellitus Dyspnea Loss of appetite SOB (shortness of breath) <Luci Rocha PA-C - Last Filed: 06/12/22 02:59> Family History Family History: Family History Other Family history of Alzheimer's disease Family history of kidney disease <Luci Rocha PA-C - Last Filed: 06/12/22 02:59> Social History Social History: Social History Smoking status: Never smoker Second hand tobacco smoke exposure: Yes (27 years ) Alcohol intake: current Gender identity (if verbalized by the patient): Male <Luci Rocha PA-C - Last Filed: 06/12/22 02:59> Exam Narrative: APPEARANCE: alert, oriented, NAD Head: Normocephalic and atraumatic. EYES: PERRLA/EOMI, conjunctivae clear NOSE: No nasal drainage EARS: External ear normal in appearance THROAT: Oropharynx is clear. Mucous membranes are moist. NECK: Supple. No adenopathy, no masses. RESPIRATORY: Airway patent, respirations nonlabored. Clear to auscultation bilaterally, no rales, rhonchi, wheezing. CARDIOVASCULAR: tachycardic. Regular rhythm without murmurs, rubs, or gallops. ABDOMINAL: Normoactive bowel sounds. Soft, nontender, nondistended
[2022-06-11] MEDS: LACTATED RINGERS 1,000 ML 999 ML IV CONT (23:39)
[2022-06-11] MEDS: ONDANSETRON INJ 4 MG/2 ML VIAL IV PUSH (23:40)
[2022-06-11] MEDS: FAMOTIDINE 20 MG/2 ML VIAL IV PUSH (23:40)
[2022-06-12 01:32] LABS: Appearance Urine Clear (Clear); Bacteria Urine None Seen /hpf; Bilirubin Urine Negative (Negative); Blood Urine Negative (Negative); Color Urine Yellow (Yellow); Glucose Urine UA 3+ mg/dL (Negative); Ketones Urine 1+ mg/dL (Negative); Leukocyte Esterase Ur Negative LEU/UL (Negative); Nitrate Urine Negative (Negative); Non Pathogenic Casts 0-2; Protein Urine 1+ mg/dL (Negative); RBC Urine 0-2 /hpf (0-2); Squamous Epithelial Cell Urine None seen /hpf (Few); WBC Urine 0-5 /hpf; pH Urine 5.5 (5.0-9.0)
[2022-06-12 01:33] LABS: Specific Grav Ur 1.041 (1.001-1.035)
[2022-06-12 01:35] LABS: Add Urine Microscopic? NO
[2022-06-12 01:38] LABS: Alanine Aminotransferase 38 U/L (6-50); Alkaline Phosphatase 61 U/L (38-126); Anion Gap 6 mmol/L (8-16); Aspartate Amino Transferase 31 U/L (17-59); Bilirubin,Total 1.5 mg/dL (0.2-1.3); Blood Urea Nitrogen 22 mg/dL (9-20); Calcium 8.2 mg/dL (8.4-10.2); Carbon Dioxide 28 mmol/L (22-30); Chloride 99 mmol/L (98-107); Estimated CRCL calculation 118 ml/min; Estimated Glomerular Filt Rate > 60; Glucose 222 mg/dL (65-110); Lipase 24 U/L (23-300); Potassium 3.9 mmol/L (3.4-5.0); Sodium 133 mmol/L (137-145)
[2022-06-12] MEDS: LACTATED RINGERS 1,000 ML 999 ML IV CONT (02:03)
[2022-06-12 07:00] LABS: Glucose Point of Care 197 mg/dl (65-105)
== END 2022-06-12 03:21 | disposition home or self-care (01) ==
PROVIDERS: Emergency Medicine; Emergency Provider Physician Assistant; PCP Family Medicine
DX: K52.9 Noninfective gastroenteritis and colitis, unspecified (principal); Z20.822 Contact with and (suspected) exposure to COVID-19; E10.9 Type 1 diabetes mellitus without complications; Z79.4 Long term (current) use of insulin
CPT/HCPCS: 36415; 80053; 81003; 82948; 83690; 85025; 87636; 96360; 96361; 96374; 96375; 99284; J2405; J7120

== ENCOUNTER 2023-04-02 20:46 | Emergency (ER) | payer BC, SELFPAY ==
--- NOTE | ~2023-04-02 | CT_ITS ---
Clinical Indication: Chest pain CT Scan of the Chest with Contrast: Technique: Contiguous sections were acquired throughout the chest after intravenous administration of 100 cc of Omnipaque 350. Dose reduction technique was used on this scan by utilizing automated expos ure control and iterative reconstruction technique. The dose-length product (DLP) was 613.54 mGy-cm. Findings: There is no evidence of any significant mediastinal, hilar or axillary lymphadenopathy. There is no f illing defect in the pulmonary arterial tree to suggest pulmonary embolus. There is no evidence of ao rtic dissection or aneurysm. There is no evidence of pleural or pericardial effusion. The lungs are clear. No pulmonary nodules or infiltrates are noted. Images through the upper abdomen reveal no abnormalities. Impression: No evidence of pulmonary embolus, aortic dissection, or aortic aneurysm. Clear lungs. Reviewed, dictated and finalized at [facility]. [employer] H[employer]IC[employer]URE INSTRUCTOR Impression: No evidence of pulmonary embolus, aortic dissection, or aortic aneurysm. Clear lungs.
--- NOTE | ~2023-04-02 | XR_ITS ---
EXAMINATION: XR chest 2V DATE: 04/02/2023 21:29 INDICATION: Right rib pain with deep inspiration. TECHNIQUE: Frontal and lateral views of the chest were obtained. COMPARISON: Chest 2 views 01/15/2021 FINDINGS: There is mild scarring at the lung apices. No pleural effusion or pneumothorax. The heart s ize is normal. IMPRESSION: 1. Stable mild scarring at the lung apices. Reviewed, dictated and finalized at location [facility]. [employer] TECHNICIAN
[2023-04-02 20:55] VITALS: BP 124/85; PULSE 81; RESP 16; TEMP 36.7; O2SAT 98
--- NOTE | 2023-04-02 20:56 | ECG_ITS ---
Measurements Intervals [place] Rate: 81 P: 51 W[place]: 132 QRS: -26 QRSD: 105 T: 52 QT: 349 QTc: 407 Interpretive Statements SINUS RHYTHM LEFT AXIS DEVIATION [QRS AXIS < -20] BORDERLINE ECG COMPARED TO ECG 01/15/2021 08:46:47 NO SIGNIFICANT CHANGES Electronically Signed On 04-03-2023 7:15:51 [employer] ASSOCIATE by Renyn Heath M.D.
[2023-04-02 22:07] LABS: Basophils Percent Auto 0.3 % (0.2-1.2); Eosinophils Absolute Auto 0.1 K/mm3 (0-0.3); Eosinophils Percent Auto 1.1 % (0-4.4); Hematocrit 45.9 % (42.0-52.0); Hemoglobin 15.2 g/dL (14.0-18.0); Immature Granulocyte Absolute 0.02 K/mm3 (0.00-0.031); Immature Granulocyte Percent A 0.3 % (0-0.5); Lymphocytes Absolute Auto 1.85 K/mm3 (0.9-3.2); Lymphocytes Percent Auto 28.8 % (18.3-44.2); Mean Corpuscular HGB Conc 33.1 g/dl (32-36); Mean Corpuscular Hemoglobin 28.6 pg (26-34); Mean Corpuscular Volume 86.3 fl (80-100); Mean Platelet Volume 9.2 fl (7.4-10.4); Monocytes Absolute Auto 0.4 K/mm3 (0.1-0.6); Monocytes Percent Auto 6.8 % (2.6-8.5); Neutrophils Percent Auto 62.7 % (45.5-73.1); Platelet Count Result 249 k/mm3 (150-375); Red Blood Count 5.32 M/mm3 (4.6-6.20); Red Cell Distribution Width 13.1 % (11.5-14.5); White Blood Count 6.4 K/mm3 (4.5-10.0)
[2023-04-02 22:19] LABS: INR 0.9; Prothrombin Time 12.6 Seconds (11.1-14.7)
[2023-04-02 22:20] LABS: Partial Thromboplastin Time 26.5 SECONDS (22.3-36.8)
[2023-04-02 22:23] LABS: Alanine Aminotransferase 27 U/L (6-50); Albumin Level 4.5 g/dL (3.5-5.1); Alkaline Phosphatase 82 U/L (38-126); Anion Gap 7 mmol/L (8-16); Aspartate Amino Transferase 21 U/L (17-59); Bilirubin,Total 0.7 mg/dL (0.2-1.3); Blood Urea Nitrogen 18 mg/dL (9-20); Calcium 9.4 mg/dL (8.4-10.2); Carbon Dioxide 28 mmol/L (22-30); Chloride 103 mmol/L (98-107); Estimated CRCL calculation 117 ml/min; Estimated Glomerular Filt Rate > 60; Glucose 114 mg/dL (65-110); Lipase 38 U/L (23-300); Potassium 3.9 mmol/L (3.4-5.0); Sodium 138 mmol/L (137-145)
[2023-04-02 22:35] LABS: Troponin I < 0.012 ng/mL (0.000-0.034)
[2023-04-02 23:52] VITALS: BP 125/83; PULSE 73; RESP 16; O2SAT 100
[2023-04-03] VITALS (8 sets, daily range): BP systolic 132–157; BP diastolic 78–139; PULSE 68–82; RESP 14–21; O2SAT 97–100
[2023-04-03 01:27] LABS: Troponin I < 0.012 ng/mL (0.000-0.034)
--- NOTE | 2023-04-03 02:41 | ED.GENADULT ---
HPI - General Adult General Chief complaint: Unspecified <NINFA Felix Last Filed: 04/03/23 03:34> Stated complaint: right rib pain <NINFA Felix Last Filed: 04/03/23 03:34> Time Seen by Provider: 04/03/23 01:02 <NINFA Felix Last Filed: 04/03/23 03:34> Source: patient <NINFA Felix Last Filed: 04/03/23 03:34> Mode of arrival: ambulatory <NINFA Felix Last Filed: 04/03/23 03:34> Limitations: no limitations <NINFA Felix Last Filed: 04/03/23 03:34> History of Present Illness HPI narrative: Patient is a 37-year-old male, with PMH of DM1, who presents to the ED with report of a right-sided rib/chest wall pain. Patient reports having pain since last . States pain is intermittent, worse with movement, lying on right side, coughing, taking deep breaths. He has not tried anything for the pain. Denies feeling significantly short of breath but does at times feel like he is not able to catch his breath. He notes he was diagnosed with COVID-19 last month and did have a lingering cough afterwards. Denies anterior chest pain. Denies lower extremity pain or swelling. Denies abdominal pain, nausea, vomiting. Denies history of blood clots. <NINFA Felix Last Filed: 04/03/23 03:34> Related Data Home medications: Home Medications Medication Instructions Recorded Confirmed sildenafil 25 mg tablet 50 mg PO DAILY PRN 07/25/19 11/20/22 citalopram 10 mg tablet 10 mg PO DAILY 03/07/21 11/20/22 fluticasone propionate 50 2 spray intranasal DAILY PRN 10/21/21 11/20/22 mcg/actuation nasal spray,suspension (Flonase Allergy Relief) <NINFA Felix Last Filed: 04/03/23 03:34> Allergies/adverse reactions: Allergies Allergy/AdvReac Type Severity Reaction Status Date / Time acetaminophen Allergy Unknown fever Verified 04/02/23 20:54 budesonide [From Symbicort] AdvReac Mild Palpitation Verified 04/02/23 20:54 s formoterol [From Symbicort] AdvReac Mild Palpitation Verified 04/02/23 20:54 s <Nia Anna PA-C - Last Filed: 04/03/23 03:34> Review of Systems Review of Systems: CONSTITUTIONAL: Denies fever, chills, or sweats. CARDIOVASCULAR: See HPI. RESPIRATORY: See HPI. GASTROINTESTINAL: Denies abdominal pain, nausea, vomiting. MUSCULOSKELETAL: See HPI. <Nia Anna PA-C - Last Filed: 04/03/23 03:34> All systems reviewed & are unremarkable except as noted in HPI and below <Nia Anna PA-C - Last Filed: 04/03/23 03:34> PMFSH Past Medical History Medical History: Medical History Abnormal weight loss Asthma Body mass index (BMI) 21 to less than 23 (03/05/15) Dyspnea Hypersomnia Loss of appetite SOB (shortness of breath) Type 1 diabetes mellitus without complications <Nia Anna PA-C - Last Filed: 04/03/23 03:34> Family History Family History: Family History Other Family history of Alzheimer's disease Family history of kidney disease <Nia Anna PA-C - Last Filed: 04/03/23 03:34> Social History Social History: Social History Smoking status: Never smoker Second hand tobacco smoke exposure: Yes (27 years ) Alcohol intake: current Gender identity (if verbalized by the patient): Male <Nia Anna PA-C - Last Filed: 04/03/23 03:34> Exam Narrative: GENERAL: Well appearing, well-nourished, non-toxic, in no acute distress. HEAD: Normocephalic, atraumatic. RESPIRATORY: Airway patent, respirations nonlabored. Clear to auscultation bilaterally, no rales, rhonchi, wheezing. No significant focal lung sounds. No splinting. CARDIOVASCULAR: Regular rate and
--- NOTE | 2023-04-03 09:16 | ECG_ITS ---
Measurements Intervals [place] Rate: 69 P: 44 FL: 144 QRS: -11 QRSD: 105 T: 35 QT: 375 QTc: 403 Interpretive Statements SINUS RHYTHM WITHIN NORMAL LIMITS COMPARED TO ECG 04/02/2023 21:01:14 NO SIGNIFICANT CHANGES Electronically Signed On 04-03-2023 15:28:56 TURN LASTER by Renny Heath M.D.
== END 2023-04-03 05:56 | disposition home or self-care (01) ==
PROVIDERS: Emergency Provider Emergency Medicine; PCP Family Medicine
DX: R07.89 Other chest pain (principal); J45.909 Unspecified asthma, uncomplicated; E10.9 Type 1 diabetes mellitus without complications; Z77.22 Contact with and (suspected) exposure to environmental tobacco smoke (acute) (chronic); R94.31 Abnormal electrocardiogram [ECG] [EKG]
CPT/HCPCS: 36415; 71046; 71275; 80053; 83690; 84484; 85025; 85610; 85730; 93005; 99284; Q9967